=== PATIENT | male | born 1975 | race Two or more races ===

== ENCOUNTER 2019-10-03 19:30 | Emergency (ER) | payer BC ==
--- NOTE | 2019-10-03 20:11 | EDM.PDOC ---
ED HPI GENERAL MEDICAL PROBLEM - General Chief Complaint: Abdominal Pain Stated Complaint: FLU Time Seen by Provider: 10/03/19 20:08 Source of Information: Reports: Patient History Limitations: Reports: No Limitations - History of Present Illness INITIAL COMMENTS - FREE TEXT/NARRATIVE: 44-year-old male who presents the emergency room with a chief complaint of nausea vomiting diarrhea. Patient also has had a fever and cough. Patient able to hold fluids down but no solids. Patient denies any chest pain or shortness of breath. generalized abdominal Pain Score (Numeric/FACES): 10 - Related Data Allergies Allergy/AdvReac Type Severity Reaction Status Date / Time No Known Allergies Allergy Verified 10/03/19 19:49 Home Meds: Home Meds Ondansetron [Zofran ODT] 4 mg PO Q6H PRN #20 tab.dis 10/03/19 [Rx] captopriL [Capoten] 1 tab PO DAILY 10/03/19 [History] Past Medical History Cardiovascular History: Reports: Hypertension Gastrointestinal History: Reports: Other (See Below) Other Gastrointestinal History: hernia repair as a child Social & Family History - Tobacco Use Smoking Status *Q: Never Smoker - Caffeine Use Caffeine Use: Reports: Coffee - Recreational Drug Use Recreational Drug Use: No ED ROS GENERAL - Review of Systems Review Of Systems: See Below Constitutional: Reports: No Symptoms, Fever, Chills, Malaise, Weakness HEENT: Reports: No Symptoms Respiratory: Reports: Shortness of Breath, Cough Cardiovascular: Reports: No Symptoms Endocrine: Reports: No Symptoms GI/Abdominal: Reports: No Symptoms Musculoskeletal: Reports: No Symptoms Skin: Reports: No Symptoms Neurological: Reports: No Symptoms Psychiatric: Reports: No Symptoms Hematologic/Lymphatic: Reports: No Symptoms Immunologic: Reports: No Symptoms ED EXAM, GI/ABD - Physical Exam Exam: See Below Exam Limited By: No Limitations General Appearance: Alert, WD/WN, No Apparent Distress Eyes: Bilateral: Normal Appearance, EOMI Ears: Normal External Exam, Normal Canal, Hearing Grossly Normal, Normal TMs Nose: Normal Inspection, Normal Mucosa Throat/Mouth: Normal Inspection, Normal Lips, Normal Teeth, Normal Oropharynx, Normal Voice, No Airway Compromise Head: Atraumatic, Normocephalic Neck: Normal Inspection, Supple, Non-Tender Respiratory/Chest: No Respiratory Distress, Lungs Clear, Normal Breath Sounds, No Accessory Muscle Use, Chest Non-Tender Cardiovascular: Normal Peripheral Pulses, Regular Rate, Rhythm, No Edema, No Gallop GI/Abdominal Exam: Normal Bowel Sounds, Non-Tender, No Organomegaly, No Distention, No Abnormal Bruit, Distended Rectal (Males) Exam: Deferred Back Exam: Normal Inspection, Full Range of Motion Extremities: Normal Inspection, Normal Range of Motion, Non-Tender Neurological: Alert, Oriented, CN II-XII Intact, Normal Gait Psychiatric: Normal Affect, Normal Mood Skin Exam: Warm, Dry, Intact, Normal Color, No Rash Lymphatic: No Adenopathy Course - Vital Signs Last Recorded V/S: Last Vital Signs Temp 96.7 F 10/03/19 21:40 Pulse 90 10/03/19 21:40 Resp 16 10/03/19 21:40 BP 113/89 10/03/19 21:40 Pulse Ox 94 L 10/03/19 21:40 - Orders/Labs/Meds Labs: Laboratory Tests 10/03/19 10/03/19 Range/Units 21:05 21:05 WBC 11.21 H (4.0-11.0) K/uL RBC 6.00 H (4.50-5.90) M/uL Hgb 18.5 H (13.0-17.0) g/dL Hct 52.5 H (38.0-50.0) % MCV 87.5 (80.0-98.0) fL MCH 30.8 (27.0-32.0) pg MCHC 35.2 (31.0-37.0) g/dL RDW Std Deviation 39.6 (28.0-62.0) fl RDW Coeff of Jeffery 13 (11.0-15.0) % Plt Count 246 (150-400) K/uL MPV 11.50 (7.40-12.00) fL Neut % (Auto) 81.0 H (48.0-80.0) % Lymph % (Auto) 12.1 L (16.0-40.0) % [place] % (Auto) 6.4 (0.0-15.0) % Eos % (Auto) 0.4 (0.0-7.0) % Baso % (Auto) 0.1 (0.0-1.5) % Neut # (Auto) 9.1 H (1.4-5.7) K/uL Lymph # (Auto) 1.4 (0.6-2.4) K/uL [place] # (Auto) 0.7 (0.0-0.8) K/uL Eos # (Auto) 0.0 (0.0-0.7) K/uL Baso # (Auto) 0.0 (0.0-0.1) K/uL Nucleated RBC % 0.0 /100WBC Nucleated RBCs # 0 K/uL Sodium 137 (136-148) mmol/L Potassium 4.1 (3.5-5.1) mmol/L Chloride 101 (98-107) mmol/L Carbon Dioxide 26.7 (21.0-32.0) mmol/L BUN 14 (7.0-18.0) mg/dL Creatinine 1.1 (0.8-1.3) mg/dL Est Cr Clr Drug Dosing TNP Estimated GFR (MDRD) > 60.0 ml/min Glucose 213 H (74-106) mg/dL Calcium 9.1 (8.5-10.1) mg/dL Total Bilirubin 0.6 (0.2-1.0) mg/dL AST 15 (15-37) IU/L ALT 34 (14-63) IU/L Alkaline Phosphatase 69 (46-116) U/L Total Protein 8.6 H (6.4-8.2) g/dL Albumin 3.9 (3.4-5.0) g/dL Globulin 4.7 H (2.6-4.0) g/dL Albumin/Globulin Ratio 0.8 L (0.9-1.6) Lipase 193 (73-393) U/L Meds: Medications Discontinued Medications Generic Name Dose Route Start Last Admin Trade Name Freq PRN Reason Stop Dose Admin Ondansetron HCl 4 mg 10/03/19 20:21 10/03/19 20:30 Zofran Odt PO 10/03/19 20:22 4 mg ONETIME ONE Administration Departure - Departure Time of Disposition: 19:24 Disposition: Home, Self-Care 01 Clinical Impression: Gastroenteritis - Discharge Information Prescriptions: Ondansetron [Zofran ODT] 4 mg PO Q6H PRN #20 tab.dis PRN Reason: Nausea/Vomiting Instructions: Viral Gastroenteritis, Adult, [id number] Referrals: PCP,None [Primary Care Provider] - Forms: ED Department Discharge Additional Instructions: Patient is to stay hydrated. Take the medication as prescribed. Follow-up with primary care physician or return to the ER if no improvement after 2 to 3 days. Sepsis Event Note - Evaluation Sepsis Screening Result: No Definite Risk - Focused Exam Date Exam was Performed: 10/04/19 Time Exam was Performed: 19:51
--- NOTE | 2019-10-03 20:20 | EDM.PDOC ---
ED HPI GENERAL MEDICAL PROBLEM - General Chief Complaint: Abdominal Pain Stated Complaint: FLU Time Seen by Provider: 10/03/19 20:08 Source of Information: Reports: Patient History Limitations: Reports: No Limitations - History of Present Illness INITIAL COMMENTS - FREE TEXT/NARRATIVE: 44-year-old male who presents the emergency room with a chief complaint of nausea vomiting diarrhea. Patient also has had a fever and cough. Patient able to hold fluids down but no solids. Patient denies any chest pain or shortness of breath. Onset: Gradual Onset Date: 10/01/19 Duration: Day(s):, Getting Worse Location: Reports: Abdomen Quality: Reports: Ache Severity: Moderate Improves with: Reports: None Worsens with: Reports: None Associated Symptoms: Reports: cough w sputum, Fever/Chills, Nausea/Vomiting Treatments [employer]: Reports: Other (see below) (peptol bismalt) generalized abdominal Pain Score (Numeric/FACES): 10 - Related Data Allergies Allergy/AdvReac Type Severity Reaction Status Date / Time No Known Allergies Allergy Verified 10/03/19 19:49 Home Meds: Home Meds captopriL [Capoten] 1 tab PO DAILY 10/03/19 [History] Past Medical History Cardiovascular History: Reports: Hypertension Gastrointestinal History: Reports: Other (See Below) Other Gastrointestinal History: hernia repair as a child Social & Family History - Tobacco Use Smoking Status *Q: Never Smoker - Caffeine Use Caffeine Use: Reports: Coffee - Recreational Drug Use Recreational Drug Use: No ED ROS GENERAL - Review of Systems Review Of Systems: See Below Constitutional: Reports: No Symptoms, Weakness HEENT: Reports: No Symptoms Respiratory: Reports: Cough Cardiovascular: Reports: No Symptoms Endocrine: Reports: No Symptoms GI/Abdominal: Reports: Abdominal Pain, Diarrhea : Reports: No Symptoms Musculoskeletal: Reports: No Symptoms Skin: Reports: No Symptoms Neurological: Reports: No Symptoms Psychiatric: Reports: No Symptoms Hematologic/Lymphatic: Reports: No Symptoms Immunologic: Reports: No Symptoms ED EXAM, GI/ABD - Physical Exam Exam: See Below Exam Limited By: No Limitations General Appearance: Alert, WD/WN, No Apparent Distress Eyes: Bilateral: Normal Appearance Ears: Hearing Grossly Normal, Normal TMs Nose: Normal Inspection, Normal Mucosa Throat/Mouth: Normal Inspection, Normal Lips, Normal Teeth, Normal Gums Head: Atraumatic, Normocephalic Neck: Normal Inspection Cardiovascular: Normal Peripheral Pulses, Regular Rate, Rhythm, No Edema GI/Abdominal Exam: Normal Bowel Sounds, Non-Tender, No Distention, No Abnormal Bruit, No Mass (Male) Exam: No Hernia, Normal Inspection Neurological: Alert, Oriented, CN II-XII Intact, Normal Cognition Psychiatric: Normal Affect Skin Exam: Warm, Dry, Intact, Normal Color Lymphatic: No Adenopathy Course - Vital Signs Last Recorded V/S: Last Vital Signs Temp 96.5 F 10/03/19 19:47 Pulse 81 10/03/19 19:47 Resp 18 10/03/19 19:47 BP 124/82 10/03/19 19:47 Pulse Ox 99 10/03/19 19:47 - Orders/Labs/Meds Orders: Active Orders 24 hr Category Date Time Status CMP [COMPREHENSIVE METABOLIC PN,CMP] [CHEM] Stat Lab 10/03/19 21:05 Received LIPASE [CHEM] Stat Lab 10/03/19 21:05 Received Labs: Laboratory Tests 10/03/19 Range/Units 21:05 WBC 11.21 H (4.0-11.0) K/uL RBC 6.00 H (4.50-5.90) M/uL Hgb 18.5 H (13.0-17.0) g/dL Hct 52.5 H (38.0-50.0) % MCV 87.5 (80.0-98.0) fL MCH 30.8 (27.0-32.0) pg MCHC 35.2 (31.0-37.0) g/dL RDW Std Deviation 39.6 (28.0-62.0) fl RDW Coeff of Jeffery 13 (11.0-15.0) % Plt Count 246 (150-400) K/uL MPV 11.50 (7.40-12.00) fL Neut % (Auto) 81.0 H (48.0-80.0) % Lymph % (Auto) 12.1 L (16.0-40.0) % [place] % (Auto) 6.4 (0.0-15.0) % Eos % (Auto) 0.4 (0.0-7.0) % Baso % (Auto) 0.1 (0.0-1.5) % Neut # (Auto) 9.1 H (1.4-5.7) K/uL Lymph # (Auto) 1.4 (0.6-2.4) K/uL [place] # (Auto) 0.7 (0.0-0.8) K/uL Eos # (Auto) 0.0 (0.0-0.7) K/uL Baso # (Auto) 0.0 (0.0-0.1) K/uL Nucleated RBC % 0.0 /100WBC Nucleated RBCs # 0 K/uL Meds: Medications Discontinued Medications Generic Name Dose Route Start Last Admin Trade Name Freq PRN Reason Stop Dose Admin Ondansetron HCl 4 mg 10/03/19 20:21 10/03/19 20:30 Zofran Odt PO 10/03/19 20:22 4 mg ONETIME ONE Administration Departure - Departure Time of Disposition: 21:18 Disposition: Home, Self-Care 01 Clinical Impression: Gastroenteritis - Discharge Information *PRESCRIPTION DRUG MONITORING PROGRAM REVIEWED*: No Instructions: Viral Gastroenteritis, Adult, [id number] Referrals: PCP,None [Primary Care Provider] - Forms: ED Department Discharge Additional Instructions: Patient is to stay hydrated. Take the medication as prescribed. Follow-up with primary care physician or return to the ER if no improvement after 2 to 3 days. Sepsis Event Note - Evaluation Sepsis Screening Result: No Definite Risk - Focused Exam Vital Signs: Vital Signs Temp Pulse Resp BP Pulse Ox 10/03/19 19:47 96.5 F 81 18 124/82 99 Date Exam was Performed: 10/03/19 Time Exam was Performed: 21:16 - My Orders Last 24 Hours: My Active Orders 10/03/19 21:05 CMP [COMPREHENSIVE METABOLIC PN,CMP] [CHEM] Stat LIPASE [CHEM] Stat - Assessment/Plan Last 24 Hours: My Active Orders 10/03/19 21:05 CMP [COMPREHENSIVE METABOLIC PN,CMP] [CHEM] Stat LIPASE [CHEM] Stat
[2019-10-03] MEDS ORDERED: Ondansetron 4 MG Tab.DIS PO ONE (20:21)
[2019-10-03 21:30] LABS: BLOOD UREA NITROGEN,BUN 14 mg/dL (7.0-18.0); CARBON DIOXIDE,CO2 26.7 mmol/L (21.0-32.0); CHLORIDE,CL 101 mmol/L (98-107); GLUCOSE RANDOM 213 mg/dL (74-106); LIPASE 193 U/L (73-393); POTASSIUM,K 4.1 mmol/L (3.5-5.1); SODIUM,NA 137 mmol/L (136-148)
== END 2019-10-03 21:49 | disposition home or self-care (01) ==
LOC: MW.ED 19:30
DX: K52.9 Noninfective gastroenteritis and colitis, unspecified (principal); I10 Essential (primary) hypertension; Z79.899 Other long term (current) drug therapy
CPT/HCPCS: 36415; 80053; 83690; 85025; 87804; 99284; A9270; 99283